=== PATIENT | female | born 1990 | race American Indian/Alaskan Native ===

== ENCOUNTER 2016-11-07 15:36 | Emergency (ER) | payer SELFPAY ==
[2016-11-07 16:28] VITALS: BP 115/69
--- NOTE | 2016-11-07 21:23 | Emergency Department Report ---
ED Female HPI - General Chief complaint: Urogenital-Female Stated complaint: VAG DISCHARGE Time Seen by Provider: 11/07/16 21:16 Source: patient Mode of arrival: Ambulatory Limitations: No Limitations - History of Present Illness Initial comments: burning itching discharge x 3 days Complaint: vaginal discharge, dysuria, possible STD Onset/Timin -: days(s) Radiation: non-radiating Severity scale (0 -10): 3 Quality: burning Consistency: intermittent Improves with: none Worsens with: urination Are you Now?: No Last Menstrual Period: 10/17/16 EDC: 07/24/17 Associated Symptoms: vaginal discharge, dysuria. denies: vaginal bleeding, abdominal pain, nausea/vomiting, fever/chills, headaches, loss of appetite, hematuria, rash, seizure, shortness of breath, syncope, weakness - Related Data Sexually active: Yes : 1 Para: 1 A: 0 Previous Rx's Medication Instructions Recorded Last Taken Type Pnv#21/Iron Ps& Heme Polyp/FA 1 each PO QDAY #30 tablet 10/03/13 2 Days Ago Rx [Prefera Ob Tablet] Fluconazole [Diflucan] 150 mg PO ONCE #1 tablet 01/26/14 01/27/14 09:00 Rx Ferrous Sulfate [Feosol 325 MG tab] 325 mg PO TID #90 tablet 06/07/14 Unknown Rx HYDROcodone/APAP 5-325 [[place] 1 each PO Q6H PRN #20 tablet 06/07/14 Unknown Rx 5-325 mg TAB] Ibuprofen [Motrin 600 MG tab] 600 mg PO Q6H PRN #100 tablet 06/07/14 Unknown Rx Cyclobenzaprine HCl [Flexeril 5 MG 5 mg PO TID #20 tab 10/20/15 Unknown Rx TAB] Ibuprofen [Motrin 800 MG tab] 800 mg PO Q8HR PRN #30 tablet 10/20/15 Unknown Rx Cephalexin [Keflex] 500 mg PO BID #14 capsule 11/07/16 Unknown Rx Allergies Allergy/AdvReac Type Severity Reaction Status Date / Time No Known Allergies Allergy Verified 11/07/16 16:25 ED Review of Systems ROS: Stated complaint: VAG DISCHARGE Other details as noted in HPI Constitutional: denies: chills, fever Eyes: denies: eye pain, eye discharge, vision change ENT: denies: ear pain, throat pain Respiratory: denies: cough, shortness of breath, wheezing Cardiovascular: denies: chest pain, palpitations Endocrine: no symptoms reported Gastrointestinal: denies: abdominal pain, nausea, diarrhea Genitourinary: urgency, dysuria, frequency, discharge. denies: hematuria, abnormal menses, dyspareunia Musculoskeletal: denies: back pain, joint swelling, arthralgia Skin: denies: rash, lesions Neurological: denies: headache, weakness, paresthesias Psychiatric: denies: anxiety, depression Hematological/Lymphatic: denies: easy bleeding, easy bruising ED Past Medical Hx - Past Medical History Previous Medical History?: No Hx Hypertension: No Hx Congestive Heart Failure: No Hx Diabetes: No Hx Deep Vein Thrombosis: No Hx Renal Disease: No Hx Sickle Cell Disease: No Hx Seizures: No Hx Asthma: No Hx COPD: No Hx HIV: No - Surgical History Past Surgical History?: No - Social History Smoking Status: Current Every Day Smoker Substance Use Type: Alcohol - Medications Home Medications: Home Medications Medication Instructions Recorded Confirmed Last Taken Type Pnv#21/Iron Ps& Heme Polyp/FA 1 each PO QDAY #30 tablet 10/03/13 09/07/15 2 Days Ago Rx [Prefera Ob Tablet] Fluconazole [Diflucan] 150 mg PO ONCE #1 tablet 01/26/14 09/07/15 01/27/14 09: 00 Rx Ferrous Sulfate [Feosol 325 MG tab] 325 mg PO TID #90 tablet 06/07/14 09/07/15 Unknown Rx HYDROcodone/APAP 5-325 [[place] 1 each PO Q6H PRN #20 tablet 06/07/14 09/07/15 Unknown Rx 5-325 mg TAB] Ibuprofen [Motrin 600 MG tab] 600 mg PO Q6H PRN #100 tablet 06/07/14 09/07/15 Unknown Rx Cyclobenzaprine HCl [Flexeril 5 MG 5 mg PO TID #20 tab 10/20/15 Unknown Rx TAB] Ibuprofen [Motrin 800 MG tab] 800 mg PO Q8HR PRN #30 tablet 10/20/15 Unknown Rx Cephalexin [Keflex] 500 mg PO BID #14 capsule 11/07/16 Unknown Rx ED Physical Exam - General Limitations: No Limitations General appearance: alert, in no apparent distress - Head Head exam: Present: atraumatic, normocephalic - Eye Eye exam: Present: normal appearance - ENT ENT exam: Present: mucous membranes moist - Neck Neck exam: Present: normal inspection - Respiratory Respiratory exam: Present: normal lung sounds bilaterally. Absent: respiratory distress - Cardiovascular Cardiovascular Exam: Present: regular rate, normal rhythm. Absent: systolic murmur, diastolic murmur, rubs, gallop - GI/Abdominal GI/Abdominal exam: Present: soft, normal bowel sounds - Rectal Rectal exam: Present: deferred - External exam: Present: normal external exam. Absent: erythema, swelling, lesions, lacerations, ecchymosis, bleeding Speculum exam: Present: normal speculum exam, vaginal discharge (white thick malodorous ). Absent: erythema, cervical discharge, vaginal bleeding, foreign body, tissue, laceration Bi-manual exam: Present: normal bi-manual exam. Absent: cervical motion tendernes, adnexal tenderness, adnexal mass, uterine tenderness - Extremities Exam Extremities exam: Present: normal inspection - Back Exam Back exam: Present: normal inspection - Neurological Exam Neurological exam: Present: alert, oriented X3 - Psychiatric Psychiatric exam: Present: normal affect, normal mood - Skin Skin exam: Present: warm, dry, intact, normal color. Absent: rash ED Course Vital Signs 11/07/16 16:25 Temperature 97.8 F Pulse Rate 74 Respiratory 18 Rate Blood Pressure 115/69 O2 Sat by Pulse 100 Oximetry ED Medical Decision Making - Lab Data wet prep negative GC/CH pending Laboratory Tests 11/07/16 21:27 Urine Color Yellow Urine Turbidity Clear Urine pH 6.0 Ur Specific [place] 1.017 Urine Protein <15 mg/dl Urine Glucose (UA) Neg Urine Ketones Neg Urine Blood Neg Urine Nitrite Neg Urine Bilirubin Neg Urine Urobilinogen 2.0 Ur Leukocyte Esterase Sm Urine WBC (Auto) 17.0 H Urine RBC (Auto) 4.0 U Epithel Cells (Auto) 9.0 Amorphous Crystals Few Urine HCG, Qual Negative - Medical Decision Making pt is a 25 y/o aaf with who presents for urinary frequency urgency and dysuria x 3 days pt endorses mild white vaginal discharge no vaginal pain no pelvic pain no abdominal pain no n/v , exam: pt with nad , abd: soft nontender no rebound no pelvic pain no superpubic pain no cva tenderness , vaginal exam: mons intact no lesion no rash on open sores, vulvovaginal mild erythema no lesions no rash no open sore, vagina: mild white thick discharge cottage cheese in apperance malodorous, cervix os closed no discharge no cmt, ua: ;noted bacteria , wbc, hcg: negative, gc/ch pending pt defers prophylactic tx for std at this time plan: diflucan ,keflex po x 7 days , follow up with primary care. Critical care attestation.: If time is entered above; I have spent that time in minutes in the direct care of this critically ill patient, excluding procedure time. ED Disposition Clinical Impression: Kaira vaginitis UTI (urinary tract infection) Qualifiers: Urinary tract infection type: acute cystitis Hematuria presence: without hematuria Qualified Code(s): N30.00 - Acute cystitis without hematuria Disposition: TO HOME OR SELFCARE Is pt being admited?: No Does the pt Need Aspirin: No Condition: Good Instructions: Urinary Tract Infection in Women (ED), Vaginitis (ED) Prescriptions: Cephalexin [Keflex] 500 mg PO BID #14 capsule Referrals: PRIMARY CARE, [Primary Care Provider] - 3-5 Days Forms: Work/School Release Form(ED)
[2016-11-07 22:03] LABS: Bilirubin,Urine NEG (Negative); Blood,Urine NEG (Negative); Ketones,Urine NEG (Negative); Leukocyte Esterase,Urine SM (Negative); Nitrite,Urine NEG (Negative); Protein,Urine <15 mg/dL mg/dL (Negative)
[2016-11-07] MEDS ORDERED: DIFLUCAN PO ONE (23:00)
[2016-11-07] MEDS ORDERED: KEFLEX PO ONE (23:00)
== END 2016-11-07 23:30 | disposition home or self-care (01) ==
LOC: ED 15:36
DX: B37.3 Candidiasis of vulva and vagina (principal); N30.00 Acute cystitis without hematuria; F17.200 Nicotine dependence, unspecified, uncomplicated
CPT/HCPCS: 81001; 81025; 87210; 87591; 99284

== ENCOUNTER 2020-03-10 14:42 | Emergency (ER) | payer MEDICAID ==
[2020-03-10 17:47] VITALS: BP 148/98
--- NOTE | 2020-03-10 17:59 | Emergency Department Report ---
ED ENT HPI - General Chief complaint: Dental/Oral Stated complaint: SWOLLEN JAW Time Seen by Provider: 03/10/20 17:44 Source: patient Mode of arrival: Ambulatory Limitations: No Limitations - History of Present Illness Initial comments: 29-year-old F [place] female newly discovered her presents emerge department complaining of a few week history of dental pain to the right upper molar region which is worse with palpation and range of motion reports no fever, chills, sweats but no odynophagia. MD complaint: tooth pain Location: tooth # Severity: moderate Quality: dull Consistency: constant Improves with: none Worsens with: none Context- Dental: history of dental caries, trauma, poor dental care - Related Data Previous Rx's Medication Instructions Recorded Last Taken Type Pnv 21/Iron Ps,Heme Ppep/Folic 1 each PO QDAY #30 tablet 10/03/13 2 Days Ago Rx [Prefera Ob Tablet] ~09/05/15 Fluconazole [Diflucan] 150 mg PO ONCE #1 tablet 01/26/14 01/27/14 09:00 Rx Ferrous Sulfate [Feosol 325 MG tab] 325 mg PO TID #90 tablet 06/07/14 Unknown Rx HYDROcodone/APAP 5-325 [[place] 1 each PO Q6H PRN #20 tablet 06/07/14 Unknown Rx 5-325 mg TAB] Ibuprofen [Motrin 600 MG tab] 600 mg PO Q6H PRN #100 tablet 06/07/14 Unknown Rx Cyclobenzaprine HCl [Flexeril 5 MG 5 mg PO TID #20 tab 10/20/15 Unknown Rx TAB] Ibuprofen [Motrin 800 MG tab] 800 mg PO Q8HR PRN #30 tablet 10/20/15 Unknown Rx Cephalexin [Keflex] 500 mg PO BID #14 capsule 11/07/16 Unknown Rx Amoxicillin [Amoxicillin TAB] 875 mg PO BID #14 tablet 03/10/20 Unknown Rx Allergies Allergy/AdvReac Type Severity Reaction Status Date / Time No Known Allergies Allergy Verified 11/07/16 16:25 ED Dental HPI - General Chief complaint: Dental/Oral Stated complaint: SWOLLEN JAW Time Seen by Provider: 03/10/20 17:44 Source: patient Mode of arrival: Ambulatory Limitations: No Limitations - Related Data Previous Rx's Medication Instructions Recorded Last Taken Type Pnv 21/Iron Ps,Heme Ppep/Folic 1 each PO QDAY #30 tablet 10/03/13 2 Days Ago Rx [Prefera Ob Tablet] ~09/05/15 Fluconazole [Diflucan] 150 mg PO ONCE #1 tablet 01/26/14 01/27/14 09:00 Rx Ferrous Sulfate [Feosol 325 MG tab] 325 mg PO TID #90 tablet 06/07/14 Unknown Rx HYDROcodone/APAP 5-325 [[place] 1 each PO Q6H PRN #20 tablet 06/07/14 Unknown Rx 5-325 mg TAB] Ibuprofen [Motrin 600 MG tab] 600 mg PO Q6H PRN #100 tablet 06/07/14 Unknown Rx Cyclobenzaprine HCl [Flexeril 5 MG 5 mg PO TID #20 tab 10/20/15 Unknown Rx TAB] Ibuprofen [Motrin 800 MG tab] 800 mg PO Q8HR PRN #30 tablet 10/20/15 Unknown Rx Cephalexin [Keflex] 500 mg PO BID #14 capsule 11/07/16 Unknown Rx Amoxicillin [Amoxicillin TAB] 875 mg PO BID #14 tablet 03/10/20 Unknown Rx Allergies Allergy/AdvReac Type Severity Reaction Status Date / Time No Known Allergies Allergy Verified 11/07/16 16:25 ED Review of Systems ROS: Stated complaint: SWOLLEN JAW Other details as noted in HPI Comment: All other systems reviewed and negative ED Past Medical Hx - Past Medical History Previous Medical History?: No Hx Hypertension: No Hx Congestive Heart Failure: No Hx Diabetes: No Hx Deep Vein Thrombosis: No Hx Renal Disease: No Hx Sickle Cell Disease: No Hx Seizures: No Hx Asthma: No Hx COPD: No Hx HIV: No - Surgical History Past Surgical History?: No - Social History Smoking Status: Never Smoker Substance Use Type: None - Medications Home Medications: Home Medications Medication Instructions Recorded Confirmed Last Taken Type Pnv 21/Iron Ps,Heme Ppep/Folic 1 each PO QDAY #30 tablet 10/03/13 09/07/15 2 Days Ago Rx [Prefera Ob Tablet] ~09/05/15 Fluconazole [Diflucan] 150 mg PO ONCE #1 tablet 01/26/14 09/07/15 01/27/14 09:00 Rx Ferrous Sulfate [Feosol 325 MG tab] 325 mg PO TID #90 tablet 06/07/14 09/07/15 Unknown Rx HYDROcodone/APAP 5-325 [[place] 1 each PO Q6H PRN #20 tablet 06/07/14 09/07/15 Unknown Rx 5-325 mg TAB] Ibuprofen [Motrin 600 MG tab] 600 mg PO Q6H PRN #100 tablet 06/07/14 09/07/15 Unknown Rx Cyclobenzaprine HCl [Flexeril 5 MG 5 mg PO TID #20 tab 10/20/15 Unknown Rx TAB] Ibuprofen [Motrin 800 MG tab] 800 mg PO Q8HR PRN #30 tablet 10/20/15 Unknown Rx Cephalexin [Keflex] 500 mg PO BID #14 capsule 11/07/16 Unknown Rx Amoxicillin [Amoxicillin TAB] 875 mg PO BID #14 tablet 03/10/20 Unknown Rx ED Physical Exam - General Limitations: No Limitations General appearance: alert, in no apparent distress - Head Head exam: Present: atraumatic, normocephalic - Eye Eye exam: Present: normal appearance - ENT ENT exam: Present: normal exam, mucous membranes moist, TM's normal bilaterally, other (Right upper gingival swelling around tooth number 2 and 3. There is some dental caries noted with some moderate erosions.) - Neck Neck exam: Present: normal inspection, full ROM. Absent: tenderness, lymphadenopathy - Respiratory Respiratory exam: Present: normal lung sounds bilaterally. Absent: respiratory distress - Cardiovascular Cardiovascular Exam: Present: regular rate, normal rhythm. Absent: systolic murmur, diastolic murmur, rubs, gallop - GI/Abdominal GI/Abdominal exam: Present: soft, normal bowel sounds - Extremities Exam Extremities exam: Present: normal inspection - Back Exam Back exam: Present: normal inspection - Neurological Exam Neurological exam: Present: alert, oriented X3 - Psychiatric Psychiatric exam: Present: normal affect, normal mood - Skin Skin exam: Present: warm, dry, intact, normal color. Absent: rash ED Course Vital Signs 03/10/20 17:46 Temperature 98.1 F Pulse Rate 89 Respiratory 18 Rate Blood Pressure 148/98 [Right] O2 Sat by Pulse 100 Oximetry Critical care attestation.: If time is entered above; I have spent that time in minutes in the direct care of this critically ill patient, excluding procedure time. ED Disposition Clinical Impression: Infected dental caries Disposition: TO HOME OR SELFCARE Is pt being admited?: No Does the pt Need Aspirin: No Condition: Stable Instructions: Toothache (ED), Dental Caries (ED) Prescriptions: Amoxicillin [Amoxicillin TAB] 875 mg PO BID #14 tablet Referrals: [facility] [Outside] - 3-5 Days
== END 2020-03-10 18:39 | disposition home or self-care (01) ==
LOC: ED 14:42
DX: K02.9 Dental caries, unspecified (principal); K04.7 Periapical abscess without sinus; Z79.1 Long term (current) use of non-steroidal anti-inflammatories (NSAID); Z79.2 Long term (current) use of antibiotics; Z79.899 Other long term (current) drug therapy
CPT/HCPCS: 99281

== ENCOUNTER 2020-03-23 18:31 | Emergency (ER) | payer MEDICAID ==
[2020-03-23 18:42] VITALS: BP 121/66
--- NOTE | 2020-03-23 18:42 | Event Note ---
ED Screening Note Date of service: 03/23/20 Time: 18:41 ED Screening Note: Complains of vaginal bleeding during x3 days States 4 weeks This initial assessment/diagnostic orders/clinical plan/treatment(s) is/are subject to change based on patients health status, clinical progression and re- assessment by fellow clinical providers in the ED. Further treatment and workup at subsequent clinical providers discretion. Patient/guardian urged not to elope from the ED as their condition may be serious if not clinically assessed and managed. Initial orders include: Labs
[2020-03-23 19:19] LABS: Basophils # (Auto) 0.1 K/mm3 (0.0-0.1); Basophils % (Auto) 1.2 % (0.0-1.8); Eosinophils # (Auto) 0.3 K/mm3 (0.0-0.4); Eosinophils % (Auto) 4.1 % (0.0-4.3); Hematocrit 35.6 % (30.3-42.9); Hemoglobin 11.7 gm/dl (10.1-14.3); Lymphocytes # (Auto) 2.3 K/mm3 (1.2-5.4); Lymphocytes % (Auto) 35.1 % (13.4-35.0); Mean Corpuscular HGB Conc 33 % (30-34); Mean Corpuscular Volume 87 fl (79-97); Monocytes # (Auto) 0.5 K/mm3 (0.0-0.8); Monocytes % (Auto) 7.8 % (0.0-7.3); Platelet Count 248 K/mm3 (140-440); Red Blood Count 4.08 M/mm3 (3.65-5.03); Red Cell Distribution Width 19.4 % (13.2-15.2)
[2020-03-23 19:24] LABS: Bacteria,Urine 1+ /HPF (Negative); Bilirubin,Urine NEG (Negative); Blood,Urine NEG (Negative); Color,Urine Yellow (Yellow); Mucus,Urine 3+ /HPF
[2020-03-23 19:32] LABS: Alanine Aminotransferase 19 units/L (7-56); Blood Urea Nitrogen 10 mg/dL (7-17); Hemolysis Index 9
[2020-03-23 19:40] LABS: BUN/Creatinine Ratio 14
[2020-03-23] MEDS ORDERED: diphenhydrAMINE 25 MG CAP PO ONE (19:44)
[2020-03-23] MEDS ORDERED: ACETAMINOPHEN 500 MG TAB PO ONE (19:44)
--- NOTE | 2020-03-23 20:37 | Emergency Department Report ---
ED HPI - General Chief complaint: Vaginal Bleeding Stated complaint: POSS MISCARRIAGE Time Seen by Provider: 03/23/20 19:43 Source: patient Mode of arrival: Ambulatory Limitations: No Limitations - History of Present Illness Initial comments: Patient is a 29-year-old female patient is G4 , P3, A0 states is currently 4 weeks last menstrual cycle 02/07/2020 , positive test at home. States vaginal bleeding x2 days. States abdominal cramping 4/10, there is no fever chills no nausea vomiting. Patient has [facility]EC[facility] PROFESSOR however could not get appointment today. States using 2 tampons daily. MD Complaint: abdominal pain, vaginal bleeding -: days(s) Location: abdomen Radiation: suprapubic Severity: moderate Severity scale (0 -10): 4 Quality: cramping Consistency: constant Improves with: none Worsens with: none Vaginal bleeding: clots :: Yes - Related Data : 4 Para: 3 Ab: 0 Previous Rx's Medication Instructions Recorded Last Taken Type Pnv 21/Iron Ps,Heme Ppep/Folic 1 each PO QDAY #30 tablet 10/03/13 2 Days Ago Rx [Prefera Ob Tablet] ~09/05/15 Fluconazole [Diflucan] 150 mg PO ONCE #1 tablet 01/26/14 01/27/14 09:00 Rx Ferrous Sulfate [Feosol 325 MG tab] 325 mg PO TID #90 tablet 06/07/14 Unknown Rx HYDROcodone/APAP 5-325 [[place] 1 each PO Q6H PRN #20 tablet 06/07/14 Unknown Rx 5-325 mg TAB] Ibuprofen [Motrin 600 MG tab] 600 mg PO Q6H PRN #100 tablet 06/07/14 Unknown Rx Cyclobenzaprine HCl [Flexeril 5 MG 5 mg PO TID #20 tab 10/20/15 Unknown Rx TAB] Ibuprofen [Motrin 800 MG tab] 800 mg PO Q8HR PRN #30 tablet 10/20/15 Unknown Rx Cephalexin [Keflex] 500 mg PO BID #14 capsule 11/07/16 Unknown Rx Amoxicillin [Amoxicillin TAB] 875 mg PO BID #14 tablet 03/10/20 Unknown Rx Acetaminophen [Non-Aspirin Extra 1,000 mg PO Q6H PRN #30 tablet 03/23/20 Unknown Rx Strength] Allergies Allergy/AdvReac Type Severity Reaction Status Date / Time No Known Allergies Allergy Verified 03/23/20 18:38 ED Review of Systems ROS: Stated complaint: POSS MISCARRIAGE Other details as noted in HPI Constitutional: denies: chills, fever Eyes: denies: eye pain, eye discharge, vision change ENT: denies: ear pain, throat pain Respiratory: denies: cough, shortness of breath, wheezing Cardiovascular: denies: chest pain, palpitations Endocrine: no symptoms reported Gastrointestinal: abdominal pain. denies: nausea, vomiting Genitourinary: denies: urgency, dysuria, discharge Musculoskeletal: denies: back pain, joint swelling, arthralgia Skin: denies: rash, lesions Neurological: denies: headache, weakness, paresthesias Psychiatric: denies: anxiety, depression Hematological/Lymphatic: denies: easy bleeding, easy bruising ED Past Medical Hx - Past Medical History Hx Hypertension: No Hx Congestive Heart Failure: No Hx Diabetes: No Hx Deep Vein Thrombosis: No Hx Renal Disease: No Hx Sickle Cell Disease: No Hx Seizures: No Hx Asthma: No Hx COPD: No Hx HIV: No - Social History Smoking Status: Never Smoker Substance Use Type: None - Medications Home Medications: Home Medications Medication Instructions Recorded Confirmed Last Taken Type Pnv 21/Iron Ps,Heme Ppep/Folic 1 each PO QDAY #30 tablet 10/03/13 09/07/15 2 Days Ago Rx [Prefera Ob Tablet] ~09/05/15 Fluconazole [Diflucan] 150 mg PO ONCE #1 tablet 01/26/14 09/07/15 01/27/14 09:00 Rx Ferrous Sulfate [Feosol 325 MG tab] 325 mg PO TID #90 tablet 06/07/14 09/07/15 Unknown Rx HYDROcodone/APAP 5-325 [[place] 1 each PO Q6H PRN #20 tablet 06/07/14 09/07/15 Unknown Rx 5-325 mg TAB] Ibuprofen [Motrin 600 MG tab] 600 mg PO Q6H PRN #100 tablet 06/07/14 09/07/15 Unknown Rx Cyclobenzaprine HCl [Flexeril 5 MG 5 mg PO TID #20 tab 10/20/15 Unknown Rx TAB] Ibuprofen [Motrin 800 MG tab] 800 mg PO Q8HR PRN #30 tablet 10/20/15 Unknown Rx Cephalexin [Keflex] 500 mg PO BID #14 capsule 11/07/16 Unknown Rx Amoxicillin [Amoxicillin TAB] 875 mg PO BID #14 tablet 03/10/20 Unknown Rx Acetaminophen [Non-Aspirin Extra 1,000 mg PO Q6H PRN #30 tablet 03/23/20 Unknown Rx Strength] ED Physical Exam - General Limitations: No Limitations General appearance: alert, in no apparent distress - Head Head exam: Present: atraumatic, normocephalic - Eye Eye exam: Present: normal appearance - ENT ENT exam: Present: mucous membranes moist - Neck Neck exam: Present: normal inspection - Respiratory Respiratory exam: Present: normal lung sounds bilaterally. Absent: respiratory distress - Cardiovascular Cardiovascular Exam: Present: regular rate, normal rhythm, normal heart sounds. Absent: systolic murmur, diastolic murmur, rubs, gallop - GI/Abdominal GI/Abdominal exam: Present: soft, normal bowel sounds. Absent: distended, tenderness, guarding, rebound, rigid, bruit, hernia - Rectal Rectal exam: Present: deferred - External exam: Present: other (exam deferred by patient ) - Extremities Exam Extremities exam: Present: normal inspection, full ROM. Absent: tenderness - Back Exam Back exam: Present: normal inspection, full ROM. Absent: tenderness, CVA tenderness (R), CVA tenderness (L) - Neurological Exam Neurological exam: Present: alert, oriented X3, normal gait - Psychiatric Psychiatric exam: Present: normal affect, normal mood - Skin Skin exam: Present: warm, dry, intact, normal color. Absent: rash ED Course Vital Signs 03/23/20 18:38 Temperature 98 F Pulse Rate 75 Respiratory 18 Rate Blood Pressure 121/66 O2 Sat by Pulse 99 Oximetry ED Medical Decision Making - Lab Data Result diagrams: 03/23/20 18:55 03/23/20 18:55 Labs 03/23/20 03/23/20 03/23/20 18:55 18:55 18:55 WBC 6.5 RBC 4.08 Hgb 11.7 Hct 35.6 MCV 87 MCH 29 MCHC 33 RDW 19.4 H Plt Count 248 Lymph % (Auto) 35.1 H [place] % (Auto) 7.8 H Eos % (Auto) 4.1 Baso % (Auto) 1.2 Lymph # (Auto) 2.3 [place] # (Auto) 0.5 Eos # (Auto) 0.3 Baso # (Auto) 0.1 Seg Neutrophils % 51.8 Seg Neutrophils # 3.4 Sodium 139 Potassium 3.8 Chloride 103.9 Carbon Dioxide 25 Anion Gap 14 BUN 10 Creatinine 0.7 Estimated GFR > 60 BUN/Creatinine Ratio 14 Glucose 104 H Calcium 9.0 Total Bilirubin 0.20 AST 20 ALT 19 Alkaline Phosphatase 57 Total Protein 7.3 Albumin 4.0 Albumin/Globulin Ratio 1.2 HCG, Quant 726.3 H Urine Color Urine Turbidity Urine pH Ur Specific [place] Urine Protein Urine Glucose (UA) Urine Ketones Urine Blood Urine Nitrite Urine Bilirubin Urine Urobilinogen Ur Leukocyte Esterase Urine WBC (Auto) Urine RBC (Auto) U Epithel Cells (Auto) Urine Bacteria (Auto) Urine Mucus Blood Type 03/23/20 03/23/20 18:55 19:00 WBC RBC Hgb Hct MCV MCH MCHC RDW Plt Count Lymph % (Auto) [place] % (Auto) Eos % (Auto) Baso % (Auto) Lymph # (Auto) [place] # (Auto) Eos # (Auto) Baso # (Auto) Seg Neutrophils % Seg Neutrophils # Sodium Potassium Chloride Carbon Dioxide Anion Gap BUN Creatinine Estimated GFR BUN/Creatinine Ratio Glucose Calcium Total Bilirubin AST ALT Alkaline Phosphatase Total Protein Albumin Albumin/Globulin Ratio HCG, Quant Urine Color Yellow Urine Turbidity Clear Urine pH 5.0 Ur Specific [place] 1.036 H Urine Protein 30 mg/dl Urine Glucose (UA) Neg Urine Ketones Tr Urine Blood Neg Urine Nitrite Neg Urine Bilirubin Neg Urine Urobilinogen 2.0 Ur Leukocyte Esterase Neg Urine WBC (Auto) 2.0 Urine RBC (Auto) 3.0 U Epithel Cells (Auto) 3.0 Urine Bacteria (Auto) 1+ Urine Mucus 3+ Blood Type O POSITIVE - Radiology Data Radiology results: report reviewed, image reviewed Findings Reporting MD: Saulo Fernández Dictation Time: March 23, 2020 19:45 Head Of Physics: Not available Blending Machine Operator Date: ULTRASOUND OBSTETRIC INDICATION / CLINICAL INFORMATION: bleeding in . TECHNIQUE: Transvaginal COMPARISON: None available. FINDINGS: GESTATIONAL SAC: No gestational sac identified no evidence of pole ADNEXA: No significant abnormality. FREE FLUID: Minimum free fluid ADDITIONAL FINDINGS: None. IMPRESSION: 1. No evidence of an intrauterine or extrauterine Signer Name: Saulo Fernández MD Signed: 03/23/2020 7:45 PM Workstation Name: [id number] Findings Reporting MD: Saulo Fernández Dictation Time: March 23, 2020 19:44 Head Of Physics: Not available Blending Machine Operator Date: ULTRASOUND OBSTETRIC INDICATION / CLINICAL INFORMATION: bleeding in . TECHNIQUE: Transabdominal. COMPARISON: None available. FINDINGS: GESTATIONAL SAC: No gestational sac identified no evidence of pole ADNEXA: No significant abnormality. FREE FLUID: None. ADDITIONAL FINDINGS: None. IMPRESSION: 1. No evidence of an intrauterine or extrauterine Signer Name: Saulo Fernández MD Signed: 03/23/2020 7:44 PM Workstation Name: [id number] - Medical Decision Making This is likely miscarriage ultrasound no evidence of , no abnormalities found. Plan follow-up with [facility]ECONOMICS PROFESSOR in the next 1 to 2 days. Tylenol as needed abdominal pain, return to emergency should symptoms worsen. Patient verbalized agreement and understanding with discharge plan. Patient DC'd home in stable condition at this time. Critical care attestation.: If time is entered above; I have spent that time in minutes in the direct care of this critically ill patient, excluding procedure time. ED Disposition Clinical Impression: Threatened miscarriage Disposition: DC-01 TO HOME OR SELFCARE Is pt being admited?: No Does the pt Need Aspirin: No Condition: Stable Instructions: Threatened Miscarriage, Vaginal Bleeding During , First Trimester Prescriptions: Acetaminophen [Non-Aspirin Extra Strength] 1,000 mg PO Q6H PRN #30 tablet PRN Reason: pain Referrals: KENY SCHROEDER MD [Primary Care Provider] - 3-5 Days TIN ANAYA MD [Staff Physician] - 3-5 Days Forms: Work/School Release Form(ED) Time of Disposition: 21:04
--- NOTE | 2020-03-23 20:48 | Ultrasound Report ---
ULTRASOUND OBSTETRIC INDICATION / CLINICAL INFORMATION: bleeding in . TECHNIQUE: Transabdominal. COMPARISON: None available. FINDINGS: GESTATIONAL SAC: No gestational sac identified no evidence of pole ADNEXA: No significant abnormality. FREE FLUID: None. ADDITIONAL FINDINGS: None. IMPRESSION: 1. No evidence of an intrauterine or extrauterine Signer Name: Saulo Fernández MD Signed: 03/23/2020 8:44 PM Workstation Name: [id number]
--- NOTE | 2020-03-23 20:49 | Ultrasound Report ---
ULTRASOUND OBSTETRIC INDICATION / CLINICAL INFORMATION: bleeding in . TECHNIQUE: Transvaginal COMPARISON: None available. FINDINGS: GESTATIONAL SAC: No gestational sac identified no evidence of pole ADNEXA: No significant abnormality. FREE FLUID: Minimum free fluid ADDITIONAL FINDINGS: None. IMPRESSION: 1. No evidence of an intrauterine or extrauterine Signer Name: Saulo Fernández MD Signed: 03/23/2020 8:45 PM Workstation Name: [id number]
== END 2020-03-23 21:20 | disposition home or self-care (01) ==
LOC: ED 18:31
DX: O20.0 Threatened abortion (principal); O26.891 Other specified pregnancy related conditions, first trimester; R10.2 Pelvic and perineal pain; Z3A.00 Weeks of gestation of pregnancy not specified; Z79.1 Long term (current) use of non-steroidal anti-inflammatories (NSAID); Z79.2 Long term (current) use of antibiotics; Z79.899 Other long term (current) drug therapy
CPT/HCPCS: 36415; 76801; 76817; 80053; 81001; 84702; 85025; 86900; 86901

== ENCOUNTER 2021-08-14 22:15 | Emergency (ER) | payer MEDICAID ==
[2021-08-14 22:24] VITALS: BP 118/69
[2021-08-14 22:57] LABS: Bilirubin,Urine NEG (Negative); Blood,Urine NEG (Negative); Color,Urine Yellow (Yellow); Protein,Urine <15 mg/dL mg/dL (Negative); RBC,Urine < 1.0 /HPF (0.0-6.0); Urobilinogen,Urine < 2.0 mg/dL (<2.0)
--- NOTE | 2021-08-15 04:26 | Emergency Department Report ---
ED General Adult HPI - General Chief complaint: Extremity Injury, Lower Stated complaint: VAGINAL DISCHARGE/LEG SWELLING Time Seen by Provider: 08/15/21 03:23 Source: patient Mode of arrival: Ambulatory Limitations: No Limitations - History of Present Illness Initial comments: 30-year-old [place] female [facility] emergency department complaining of having vaginal discharge with a slight odor for the last 3 to 4 days of unknown etiology associated with occasional dysuria but no suspicion of an STD reports no fever, chills, sweats. No chest pain palpitation no nausea no vomiting no abdominal pain. Reports increased urinary frequency as well -: Gradual Location: upper extremity Radiation: non-radiation Quality: burning, dull Consistency: constant Improves with: none Worsens with: none Associated Symptoms: denies: confusion, diaphoresis, fever/chills, headaches, loss of appetite, nausea/vomiting, weakness - Related Data Previous Rx's Medication Instructions Recorded Last Taken Type Pnv 21/Iron Ps,Heme Ppep/Folic 1 each PO QDAY #30 tablet 10/03/13 2 Days Ago Rx [Prefera Ob Tablet] ~09/05/15 Ferrous Sulfate [Feosol 325 MG tab] 325 mg PO TID #90 tablet 06/07/14 Unknown Rx HYDROcodone/APAP 5-325 [[place] 1 each PO Q6H PRN #20 tablet 06/07/14 Unknown Rx 5-325 mg TAB] Ibuprofen [Motrin 600 MG tab] 600 mg PO Q6H PRN #100 tablet 06/07/14 Unknown Rx Cyclobenzaprine HCl [Flexeril 5 MG 5 mg PO TID #20 tab 10/20/15 Unknown Rx TAB] Ibuprofen [Motrin 800 MG tab] 800 mg PO Q8HR PRN #30 tablet 10/20/15 Unknown Rx cephALEXin [Keflex] 500 mg PO BID #14 capsule 11/07/16 Unknown Rx Amoxicillin [Amoxicillin TAB] 875 mg PO BID #14 tablet 03/10/20 Unknown Rx Acetaminophen [Non-Aspirin Extra 1,000 mg PO Q6H PRN #30 tablet 03/23/20 Unknown Rx Strength] Fluconazole [Diflucan TAB] 150 mg PO ONCE #1 tablet 08/15/21 Unknown Rx metroNIDAZOLE [Flagyl] 500 mg PO Q12HR #20 tab 08/15/21 Unknown Rx Allergies Allergy/AdvReac Type Severity Reaction Status Date / Time No Known Allergies Allergy Verified 03/23/20 18:38 ED Review of Systems ROS: Stated complaint: VAGINAL DISCHARGE/LEG SWELLING Other details as noted in HPI Comment: All other systems reviewed and negative ED Past Medical Hx - Past Medical History Hx Hypertension: No Hx Congestive Heart Failure: No Hx Diabetes: No Hx Deep Vein Thrombosis: No Hx Renal Disease: No Hx Sickle Cell Disease: No Hx Seizures: No Hx Asthma: No Hx COPD: No Hx HIV: No - Social History Smoking Status: Never Smoker Substance Use Type: None - Medications Home Medications: Home Medications Medication Instructions Recorded Confirmed Last Taken Type Pnv 21/Iron Ps,Heme Ppep/Folic 1 each PO QDAY #30 tablet 10/03/13 09/07/15 2 Days Ago Rx [Prefera Ob Tablet] ~09/05/15 Ferrous Sulfate [Feosol 325 MG tab] 325 mg PO TID #90 tablet 06/07/14 09/07/15 Unknown Rx HYDROcodone/APAP 5-325 [[place] 1 each PO Q6H PRN #20 tablet 06/07/14 09/07/15 Unknown Rx 5-325 mg TAB] Ibuprofen [Motrin 600 MG tab] 600 mg PO Q6H PRN #100 tablet 06/07/14 09/07/15 Unknown Rx Cyclobenzaprine HCl [Flexeril 5 MG 5 mg PO TID #20 tab 10/20/15 Unknown Rx TAB] Ibuprofen [Motrin 800 MG tab] 800 mg PO Q8HR PRN #30 tablet 10/20/15 Unknown Rx cephALEXin [Keflex] 500 mg PO BID #14 capsule 11/07/16 Unknown Rx Amoxicillin [Amoxicillin TAB] 875 mg PO BID #14 tablet 03/10/20 Unknown Rx Acetaminophen [Non-Aspirin Extra 1,000 mg PO Q6H PRN #30 tablet 03/23/20 Unknown Rx Strength] Fluconazole [Diflucan TAB] 150 mg PO ONCE #1 tablet 08/15/21 Unknown Rx metroNIDAZOLE [Flagyl] 500 mg PO Q12HR #20 tab 08/15/21 Unknown Rx ED Physical Exam - General Limitations: No Limitations General appearance: alert, in no apparent distress - Head Head exam: Present: atraumatic, normocephalic - Eye Eye exam: Present: normal appearance, PERRL, EOMI Pupils: Present: normal accommodation - ENT ENT exam: Present: mucous membranes moist - Neck Neck exam: Present: normal inspection - Respiratory Respiratory exam: Present: normal lung sounds bilaterally. Absent: respiratory distress - Cardiovascular Cardiovascular Exam: Present: regular rate, normal rhythm. Absent: systolic murmur, diastolic murmur, rubs, gallop - GI/Abdominal GI/Abdominal exam: Present: soft, normal bowel sounds - Extremities Exam Extremities exam: Present: normal inspection - Back Exam Back exam: Present: normal inspection - Neurological Exam Neurological exam: Present: alert, oriented X3 - Psychiatric Psychiatric exam: Present: normal affect, normal mood - Skin Skin exam: Present: warm, dry, intact, normal color. Absent: rash ED Course Vital Signs 08/14/21 22:23 Temperature 98.3 F Pulse Rate 73 Respiratory 18 Rate Blood Pressure 118/69 O2 Sat by Pulse 96 Oximetry Critical care attestation.: If time is entered above; I have spent that time in minutes in the direct care of this critically ill patient, excluding procedure time. ED Disposition Clinical Impression: Vaginitis Disposition: 01 HOME / SELF CARE / HOMELESS Is pt being admited?: No Does the pt Need Aspirin: No Condition: Stable Instructions: Vaginitis Prescriptions: Fluconazole [Diflucan TAB] 150 mg PO ONCE #1 tablet metroNIDAZOLE [Flagyl] 500 mg PO Q12HR #20 tab Referrals: PRIMARY CARE, [Primary Care Provider] - 3-5 Days
== END 2021-08-15 04:52 | disposition home or self-care (01) ==
LOC: ED 22:15
DX: N76.0 Acute vaginitis (principal)
CPT/HCPCS: 81001; 99283